=== PATIENT | female | born 2000 | race American Indian/Alaskan Native ===

== ENCOUNTER 2021-12-08 16:37 | Emergency (ER) | payer SELFPAY ==
[2021-12-08 17:39] VITALS: BP 98/70
[2021-12-08 18:30] LABS: Basophils % (Auto) 0.3 % (0.0-1.8); Eosinophils % (Auto) 0.2 % (0.0-4.3); Hematocrit 42.1 % (30.3-42.9); Hemoglobin 14.3 gm/dl (10.1-14.3); Lymphocytes # (Auto) 1.7 K/mm3 (1.2-5.4); Lymphocytes % (Auto) 13.1 % (13.4-35.0); Mean Corpuscular HGB Conc 34 % (30-34); Mean Corpuscular Volume 96 fl (79-97); Monocytes # (Auto) 1.7 K/mm3 (0.0-0.8); Monocytes % (Auto) 13.3 % (0.0-7.3); Platelet Count 401 K/mm3 (140-440); Red Blood Count 4.41 M/mm3 (3.65-5.03); Red Cell Distribution Width 12.3 % (13.2-15.2)
[2021-12-08 18:49] LABS: Alanine Aminotransferase 14 units/L (7-56); Albumin 4.8 g/dL (3.9-5); BUN/Creatinine Ratio 7; Blood Urea Nitrogen 6 mg/dL (7-17); Calcium 9.6 mg/dL (8.4-10.2); Hemolysis Index 21
== END 2021-12-09 00:20 | disposition left against medical advice (07) ==
LOC: ED 16:37
DX: N28.89 Other specified disorders of kidney and ureter (principal); Z53.21 Procedure and treatment not carried out due to patient leaving prior to being seen by health care provider
CPT/HCPCS: 36415; 80053; 85025